=== PATIENT | female | born 1975 | race Caucasian/White ===

== ENCOUNTER 2024-10-15 10:03 | Emergency (ER) | payer MEDICAID ==
[~2024-10-15] VITALS: Ht 154.9 cm; Wt 86.0 kg
[2024-10-15 10:06] VITALS: O2SAT 97
[2024-10-15] MEDS: IBUPROFEN 800MG TABLET PO ONE (11:15)
[2024-10-15] MEDS ORDERED: IBUP-2030 MT (12:11)
[2024-10-15 13:03] VITALS: BP 125/96; PULSE 82; RESP 15; TEMP 37; O2SAT 99
== END 2024-10-15 13:06 | disposition home or self-care (01) ==
LOC: ER 10:16
DX: M79.671 Pain in right foot (principal); M25.552 Pain in left hip; M25.512 Pain in left shoulder; M25.511 Pain in right shoulder; I10 Essential (primary) hypertension; I25.2 Old myocardial infarction; Z79.899 Other long term (current) drug therapy; Z88.0 Allergy status to penicillin
CPT/HCPCS: 99285; 71045; 73502; 73630; A6449